=== PATIENT | male | born 1980 | race Asian ===

== ENCOUNTER → 2021-02-07 | Outpatient (CLI) | payer OTHER ==
[~2021-02-07] MED LIST: GADOTERATE 7.5 MMOL/15ML VIAL. IVP ONE
--- NOTE | 2021-02-07 10:22 | RAD ---
MRI THORACIC SPINE WITHOUT AND WITH IV CONTRAST History:Reason: THORACIC LUMP. 30ml Clariscan / Spl. Instructions: / History: Technique: Multiplanar, multi sequential MR imaging was performed of the thoracic spine was performed without and with intravenous contrast. Comparison: None Findings: Normal vertebral body height and alignment. No acute fracture. Congenitally small spinal canal. Mild degenerative disc changes with small disc protrusions. Mild diffuse canal narrowing. Moderate ca nal narrowing T11-T12 with cord flattening. Facet arthropathy. Moderate T1-T2 and T10-T11 neuroforami nal narrowing. Mild T2-T3 and T3-T4 as well as T10-T11 neuroforaminal narrowing. No pathologic signal abnormality within the thoracic spinal cord. Multilobulated fat-containing mass within the left posterior upper paraspinal subcutaneous tissues me asures 8.9 cm transverse by 2.5 cm anterior posterior by 8.5 cm craniocaudal. Thin septations. No enh ancing nodular component. Impression: 1. 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 Recommend continued follow-up and imaging follow-up if interval growth. 2. Multilevel thoracic spondylosis most prominent T1-T2 and T11-T12. 3. Moderate T11-T12 canal and neuroforaminal narrowing. Electronically signed by: Pedro Luis Walker DO (02/07/2021 10:20 AM) [id number]
== END ==
LOC: EEVIPCON 08:15 → MRI 08:16
PROVIDERS: ATTEND Preventive Medicine Occupational Medicine
DX: M47.814 Spondylosis without myelopathy or radiculopathy, thoracic region (principal); M48.04 Spinal stenosis, thoracic region; R22.2 Localized swelling, mass and lump, trunk
CPT/HCPCS: 72157; A9575